=== PATIENT | male | born 1950 | race Native Hawaiian/Other Pacific Islander ===

== ENCOUNTER 2021-10-01 09:14 | Outpatient (CLI) | payer OTHER | END 2021-10-01 18:50 | disposition home or self-care (01) | LOC: RESP 09:14 | PROVIDERS: ATTEND Nurse Practitioner | DX: R07.89 Other chest pain (principal); M54.12 Radiculopathy, cervical region | CPT/HCPCS: 93005 ==

== ENCOUNTER 2021-10-29 10:45 | Emergency (ER) | payer OTHER ==
[~2021-10-29] VITALS: Ht 182.9 cm; Wt 133.8 kg
[2021-10-29 10:45] VITALS: TEMP 97.7
[2021-10-29 11:25] LABS: PLATELET COUNT 120 K/uL (142-355)
[2021-10-29 11:30] VITALS: BP 131/82
[2021-10-29 11:30] LABS: POTASSIUM 4.1 mmol/L (3.6-5.2)
== END 2021-10-29 11:49 | disposition short-term general hospital (02) ==
LOC: ED 10:45
PROVIDERS: Emergency Medicine
DX: S45.111A Laceration of brachial artery, right side, initial encounter (principal); W29.8XXA Contact with other powered hand tools and household machinery, initial encounter; Y92.89 Other specified places as the place of occurrence of the external cause
CPT/HCPCS: 80053; 83880; 84484; 85027; 85610; 85730; 90471; 90715; 93005; 96365; 99284; J0690